=== PATIENT | female | born 1985 | race Caucasian/White ===

== ENCOUNTER → 2016-07-02 | Outpatient (CLI) | payer OTHER ==
--- NOTE | 2016-07-02 12:28 | RAD ---
DATE: 07/02/2016 EXAM: DIGITAL DIAGNOSTIC BILATERAL HISTORY: Left breast lumps, intermittent bilateral breast discharge COMPARISON: Baseline This study was interpreted with the benefit of Computerized Aided Detection (CAD). FINDINGS: BBs were placed over the areas of palpable concern at the 9:00 and 3:00 locations in the left breast. CC and MLO tomographic images were also obtained of the left breast in addition to the routine 2-D images. There are scattered fibroglandular densities in the breasts. In the medial aspect of the left breast there is a cluster of rounded opacities centered at the 9:00 location which corresponds to the area of palpable concern. The largest of these individual nodules measures 15 mm. It demonstrates a smooth margin. There is a single nonspecific linear microcalcification noted along the medial aspect of this process. No discrete mass or nodule is seen laterally in the left breast in the area of palpable concern. No right breast mass or suspicious microcalcifications are seen. Left breast ultrasound, 07/02/2016: A targeted ultrasound exam of the areas of concern in the left breast was performed. At the 9-10:00 location in the left breast there is a smooth 14 mm cyst.. There is an adjacent cluster of numerous tiny cysts. The largest of these additional cysts measures 7 mm. No solid mass is seen. We also targeted the lateral aspect of the left breast in the area of reported palpable concern. Heterogeneous fibroglandular shadows are present. No breast mass is seen. IMPRESSION: 1. The palpable abnormality in the medial aspect of the left breast corresponds to a cluster of benign-appearing cysts. 2. No mammographic or sonographic correlate was identified for the area of palpable concern laterally in the left breast. Clinical surveillance is suggested. 3. No right breast abnormality is detected. 4. A history of intermittent bilateral galactorrhea was given. Bilateral breast discharge is most commonly due to systemic factors. BI-RADS CATEGORY: 2 BENIGN FINDING(S) RECOMMENDED FOLLOW-UP: CLIN FOLLOW UP IMAGING CLINICALLY INDICATED PQRS compliance statement: Patient information was entered into a reminder system with a target due date for the next mammogram. Mammography is a sensitive method for finding small breast cancers, but it does not detect them all and is not a substitute for careful clinical examination. A negative mammogram does not negate a clinically suspicious finding and should not result in delay in biopsying a clinically suspicious abnormality. "Our facility is accredited by the [employer] Mammography [employer]."
--- NOTE | 2016-07-04 15:08 | RAD ---
PATIENT: NORMA WHITTAKER ACCOUNT: [id number] : 1985 LOCATION: [place] AGE: 31 SEX: F EXAM STATUS: REG CLI ORD. PHYSICIAN: NYDIA GONZALEZ NP REASON: 2 LEFT BREAST MASSES PROCEDURE: DIGITAL DIAGNOSTIC BILATERAL DATE: 07/02/2016 EXAM: DIGITAL DIAGNOSTIC BILATERAL HISTORY: Left breast lumps, intermittent bilateral breast discharge COMPARISON: Baseline This study was interpreted with the benefit of Computerized Aided Detection (CAD). FINDINGS: BBs were placed over the areas of palpable concern at the 9:00 and 3:00 locations in the left breast. CC and MLO tomographic images were also obtained of the left breast in addition to the routine 2-D images. There are scattered fibroglandular densities in the breasts. In the medial aspect of the left breast there is a cluster of rounded opacities centered at the 9:00 location which corresponds to the area of palpable concern. The largest of these individual nodules measures 15 mm. It demonstrates a smooth margin. There is a single nonspecific linear microcalcification noted along the medial aspect of this process. No discrete mass or nodule is seen laterally in the left breast in the area of palpable concern. No right breast mass or suspicious microcalcifications are seen. Left breast ultrasound, 07/02/2016: A targeted ultrasound exam of the areas of concern in the left breast was performed. At the 9-10:00 location in the left breast there is a smooth 14 mm cyst.. There is an adjacent cluster of numerous tiny cysts. The largest of these additional cysts measures 7 mm. No solid mass is seen. We also targeted the lateral aspect of the left breast in the area of reported palpable concern. Heterogeneous fibroglandular shadows are present. No breast mass is seen. IMPRESSION: 1. The palpable abnormality in the medial aspect of the left breast corresponds to a cluster of benign-appearing cysts. 2. No mammographic or sonographic correlate was identified for the area of palpable concern laterally in the left breast. Clinical surveillance is suggested. 3. No right breast abnormality is detected. 4. A history of intermittent bilateral galactorrhea was given. Bilateral breast discharge is most commonly due to systemic factors. BI-RADS CATEGORY: 2 BENIGN FINDING(S) RECOMMENDED FOLLOW-UP: CLIN FOLLOW UP IMAGING CLINICALLY INDICATED PQRS compliance statement: Patient information was entered into a reminder system with a target due date for the next mammogram. Mammography is a sensitive method for finding small breast cancers, but it does not detect them all and is not a substitute for careful clinical examination. A negative mammogram does not negate a clinically suspicious finding and should not result in delay in biopsying a clinically suspicious abnormality. "Our facility is accredited by the [employer] Mammography [employer]." DICTATED AND SIGNED BY: LIAN OSBORN MD DATE: 07/02/16 1104 MTDD
== END | disposition home or self-care (01) ==
LOC: US 09:42
PROVIDERS: ATTEND Nurse Practitioner Family
DX: N63 Unspecified lump in breast (principal); O92.6 Galactorrhea; N64.52 Nipple discharge
CPT/HCPCS: 76641; G0204; 77066